=== PATIENT | male | born 1970 | race Caucasian/White ===

== ENCOUNTER 2021-12-16 09:08 | Emergency (ER) | payer OTHER ==
[~2021-12-16] VITALS: Ht 175.3 cm; Wt 77.1 kg
[~2021-12-16 09:08] MED LIST: CLIN150 PO; CLIN300 PO; CYCL10 PO; ERYT500 PO; GENT.3OPSA OU; HYDACE5 PO; HYDR1TAB94 PO; NAPR500EC PO; Naprosyn500 MG PO; Norco 10-325 T1 EACH PO; OXYACE5T PO; OXYACE7.5T PO; PSEU30 PO; RXCLIN PO; RXHYDACE PO; RXOXYACE PO; SILSUL1TC TOP; SULTRIDS PO; TRAM50 PO
[2021-12-16] MEDS ORDERED: ONDA4ODT MM (12:05)
[2021-12-16] MEDS ORDERED: MECL25 PO (12:05)
== END 2021-12-16 12:11 | disposition home or self-care (01) ==
LOC: ER 09:08
DX: S06.0X0A Concussion without loss of consciousness, initial encounter (principal); F17.220 Nicotine dependence, chewing tobacco, uncomplicated; W13.2XXA Fall from, out of or through roof, initial encounter
CPT/HCPCS: 70450; 99283-25; A9270

== ENCOUNTER 2021-12-23 10:32 | Day surgery (SDC) | payer OTHER ==
[~2021-12-23] VITALS: Ht 175.3 cm; Wt 76.2 kg
[~2021-12-23 10:32] MED LIST changes: +MECL25 PO; +ONDA4ODT MM; +Percocet 5-3251 EACH PO
--- NOTE | 2021-12-23 17:05 | NUR ---
Patient up to Ambulate independently. Gait steady. Discharge instructions reviewed with patient. Patient verbalizes understanding. Copy given to patient to take home. Patient States Post-Procedure ride home has been arranged. Discharged via wheelchair to private car for ride home.
== END 2021-12-23 17:05 | disposition home or self-care (01) ==
LOC: ORSCMMR 10:32 → ORD 12:30 → ORSCMMR 17:05
PROVIDERS: Orthopaedic Surgery
PROC: 0PSJ04Z Reposition Left Radius with Internal Fixation Device, Open Approach (ICD-10-PCS; principal; 2021-12-23 12:30)
DX: S52.572A Other intraarticular fracture of lower end of left radius, initial encounter for closed fracture (principal); W13.2XXA Fall from, out of or through roof, initial encounter
CPT/HCPCS: 73100; A9270; C1713; J0690; J1100; J2250; J2370; J2405; J2704; J2795; J3010; J7120

== ENCOUNTER 2022-05-18 09:32 | Emergency (ER) | payer BC ==
[~2022-05-18] VITALS: Ht 177.8 cm; Wt 77.1 kg
[2022-05-18 10:28] LABS: BASOPHILS ABSOLUTE AUTO 0.03 K/mm3 (0.00-0.23); BASOPHILS PERCENT AUTO 0 % (0-2); EOSINOPHILS ABSOLUTE AUTO 0.03 K/mm3 (0.00-0.68); EOSINOPHILS PERCENT AUTO 0 % (0-6); Hematocrit 42.4 % (37.0-53.0); Hemoglobin 14.9 g/dL (13.5-17.5); IMMATURE GRAN ABSOLUTE AUTO 0.03 K/mm3 (0.00-0.10); IMMATURE GRAN PERCENT AUTO 0 % (0-1); LYMPHOCYTES ABSOLUTE AUTO 1.09 K/mm3 (0.84-5.20); LYMPHOCYTES PERCENT AUTO 9 % (21-46); MONOCYTES ABSOLUTE AUTO 0.82 K/mm3 (0.16-1.47); MONOCYTES PERCENT AUTO 7 % (4-13); Mean Corpuscular HGB 30.1 pg (26.0-34.0); Mean Corpuscular HGB Conc 35.1 g/dL (31.5-36.5); Mean Corpuscular Volume 86 fL (80-100); Mean Platelet Volume 10.9 fL (9.1-12.4); NEUTROPHILS ABSOLUTE AUTO 9.97 K/mm3 (1.96-9.15); NEUTROPHILS PERCENT AUTO 83 % (41-73); Platelet Count 164 K/mm3 (150-400); RDW Coefficient Variation 13.2 % (11.7-14.2); Red Blood Cell Count 4.95 M/mm3 (4.30-5.90); White Blood Cell Count 11.97 K/mm3 (4.00-11.30)
[2022-05-18 10:54] LABS: Albumin, Blood 4.4 g/dL (3.4-5.0); Albumin/Globulin Ratio 1.3 (0.8-1.8); Bun/Creatinine Ratio 13.9 (12.0-20.0); Calcium, Blood 9.6 mg/dL (8.5-10.1); Creatinine, Blood 1.22 mg/dL (0.60-1.20); Globulin, Blood 3.5 g/dL (2.2-4.0); Potassium, Blood 4.7 mmol/L (3.5-5.5); Total Protein, Blood 7.9 g/dL (6.4-8.2)
[2022-05-18 12:44] LABS: Source, Urine Clean Catch
[2022-05-18 12:49] LABS: Appearance, Urine Clear (Clear); Bilirubin, Urine Neg (Neg); Blood, Urine 4+ (Neg); Color, Urine Yellow (P-Yellow); Glucose Qualitative, Urine Neg (Neg); Ketones, Urine Neg (Neg); Leukocyte Esterase, Urine Neg (Neg); Nitrite, Urine Neg (Neg); Protein, Urine Neg (Neg); Specific Gravity, Urine 1.015 (1.003-1.022); Urobilinogen, Urine NORM (Normal)
[2022-05-18 13:17] LABS: White Blood Cells, Urine Not Seen /hpf (0-5)
[2022-05-18 13:19] LABS: Bacteria Not Seen /hpf; Mucus Mod (0-Heavy); Squamous Epithelial Cells Rare /hpf (Few)
[2022-05-18] MEDS ORDERED: Flomax0.4 MG PO (13:33)
[2022-05-18] MEDS ORDERED: ONDA4ODT MM (13:33)
[2022-05-18] MEDS ORDERED: Roxicodone5 MG PO (13:33)
== END 2022-05-18 13:56 | disposition home or self-care (01) ==
LOC: ER 09:32
PROVIDERS: Physician Assistant
DX: N13.2 Hydronephrosis with renal and ureteral calculous obstruction (principal); F17.220 Nicotine dependence, chewing tobacco, uncomplicated; Z88.0 Allergy status to penicillin
CPT/HCPCS: 36415; 74177; 80053; 81001; 83690; 85025; A9270; J1885; J2405; Q9967

== ENCOUNTER 2024-11-26 22:30 | Emergency (ER) | payer BC, OTHER ==
[~2024-11-26] VITALS: Ht 175.3 cm; Wt 81.7 kg
[~2024-11-26 22:30] MED LIST changes: +Flomax0.4 MG PO; +IBUP600 PO; +OXAYDO5 M1 PO; +Roxicodone5 MG PO; +TAMS.4ER PO
[2024-11-26 22:50] VITALS: BP 165/113
[2024-11-26] MEDS ORDERED: Ketorolac Tromethamine 30mg Vial IM ONE (22:55)
[2024-11-26] MEDS ORDERED: Ondansetron HCl 2 MG / ML 2ML Vial IV ONE (23:00)
[2024-11-26] MEDS ORDERED: Ketorolac Tromethamine 30mg Vial IV ONE (23:00)
[2024-11-26 23:15] LABS: BASOPHILS ABSOLUTE AUTO 0.04 K/mm3 (0.00-0.23); BASOPHILS PERCENT AUTO 1 % (0-2); EOSINOPHILS ABSOLUTE AUTO 0.11 K/mm3 (0.00-0.68); EOSINOPHILS PERCENT AUTO 1 % (0-6); Hematocrit 38.7 % (37.0-53.0); IMMATURE GRAN ABSOLUTE AUTO 0.09 K/mm3 (0.00-0.10); IMMATURE GRAN PERCENT AUTO 1 % (0-1); LYMPHOCYTES ABSOLUTE AUTO 1.96 K/mm3 (0.84-5.20); LYMPHOCYTES PERCENT AUTO 25 % (21-46); MONOCYTES ABSOLUTE AUTO 0.65 K/mm3 (0.16-1.47); MONOCYTES PERCENT AUTO 8 % (4-13); Mean Corpuscular HGB Conc 36.2 g/dL (31.5-36.5); Mean Corpuscular Volume 86 fL (80-100); Mean Platelet Volume 10.3 fL (9.1-12.4); NEUTROPHILS ABSOLUTE AUTO 5.11 K/mm3 (1.96-9.15); NEUTROPHILS PERCENT AUTO 64 % (41-73); Platelet Count 204 K/mm3 (150-400); RDW Coefficient Variation 12.7 % (11.7-14.2); RDW Standard Deviation 39.6 fL (35.1-46.3); Red Blood Cell Count 4.52 M/mm3 (4.30-5.90); White Blood Cell Count 7.96 K/mm3 (4.00-11.30)
[2024-11-27 00:06] LABS: Albumin, Blood 4.1 g/dL (3.4-5.0); Albumin/Globulin Ratio 1.2 (0.8-1.8); Bilirubin, Total 0.5 mg/dL (0.1-1.0); Calcium, Blood 8.5 mg/dL (8.5-10.1); Creatinine, Blood 1.4 mg/dL (0.60-1.20); Globulin, Blood 3.5 g/dL (2.2-4.0); Potassium, Blood 3.8 mmol/L (3.5-5.5); Total Protein, Blood 7.6 g/dL (6.4-8.2)
[2024-11-27 00:55] LABS: Source, Urine Clean Catch
[2024-11-27 01:57] LABS: Bilirubin, Urine Neg (Neg); Blood, Urine 5+ (Neg); Glucose Qualitative, Urine Neg (Neg); Ketones, Urine Neg (Neg); Leukocyte Esterase, Urine Neg (Neg); Nitrite, Urine Neg (Neg); Protein, Urine 1+ (Neg); Urobilinogen, Urine NORM (Normal)
[2024-11-27 02:07] LABS: Appearance, Urine Clear (Clear); Color, Urine Yellow (P-Yellow)
[2024-11-27 02:10] LABS: Bacteria Few /hpf; Calcium Oxalate Crystals Mod /hpf; Red Blood Cells, Urine 50-100 /hpf (0-2); Squamous Epithelial Cells Few /hpf (Few); White Blood Cells, Urine 0-2 /hpf (0-5)
[2024-11-27] MEDS ORDERED: IBU600 MG PO (02:22)
[2024-11-27] MEDS ORDERED: Flomax0.4 MG PO (02:22)
== END 2024-11-27 02:30 | disposition home or self-care (01) ==
LOC: ER 22:30
PROVIDERS: Emergency Medicine
DX: N13.2 Hydronephrosis with renal and ureteral calculous obstruction (principal); F17.220 Nicotine dependence, chewing tobacco, uncomplicated; Z88.0 Allergy status to penicillin; Z79.899 Other long term (current) drug therapy
CPT/HCPCS: 74176; 80053; 81001; 83605; 85025; 96374; 96375; 99284-25; J1885; J2405